=== PATIENT | female | born 1950 | race Caucasian/White ===

== ENCOUNTER 2017-08-12 11:29 | Emergency (ER) | payer MEDICARE, OTHER ==
[2017-08-12 12:04] VITALS: BP 157/75
--- NOTE | 2017-08-12 13:00 | UC ---
Respiratory Complaint HPI - HPI Summary HPI Summary: 66 yo female with cough x 3 days slight fever some myalgias sore throat with cough no cp or sob - History of Current Complaint Chief Complaint: UCRespiratory Stated Complaint: COUGH, FEVER, SORE THROAT Time Seen by Provider: 08/12/17 12:44 Hx Obtained From: Patient Onset/Duration: Gradual Onset, Lasting Days Timing: Constant Severity Initially: Mild Severity Currently: Mild Pain Intensity: 2 Pain Scale Used: 0-10 Numeric Character: Cough: Nonproductive Associated Signs And Symptoms: Positive: Nasal Congestion - Allergies/Home Medications Allergies/Adverse Reactions: Allergies Allergy/AdvReac Type Severity Reaction Status Date / Time No Known Allergies Allergy Verified 08/12/17 12:00 PMH/Surg Hx/FS Hx/Imm Hx Previously Healthy: Yes - Surgical History Surgical History: Yes Surgery Procedure, Year, and Place: IUD REMOVAL - Family History Known Family History: Positive: Hypertension - Social History Alcohol Use: Rare Substance Use Type: None Smoking Status (MU): Never Smoked Tobacco Review of Systems Constitutional: Fever Skin: Negative Eyes: Negative ENT: Negative Respiratory: Cough Cardiovascular: Negative Gastrointestinal: Negative Genitourinary: Negative Motor: Negative Neurovascular: Negative Musculoskeletal: Negative Neurological: Negative Psychological: Negative Is Patient Immunocompromised?: No All Other Systems Reviewed And Are Negative: Yes Physical Exam Triage Information Reviewed: Yes Appearance: Well-Appearing, No Pain Distress, Well-Nourished Vital Signs: Initial Vital Signs Temp 98.2 F 08/12/17 12:02 Pulse 77 08/12/17 12:02 Resp 18 08/12/17 12:02 BP 157/75 08/12/17 12:02 Pulse Ox 97 08/12/17 12:02 Vital Signs Reviewed: Yes Eyes: Positive: Conjunctiva Clear ENT: Positive: Hearing grossly normal, Uvula midline. Negative: Pharyngeal erythema, Nasal congestion, Nasal drainage, Trismus, Muffled voice, Hoarse voice Neck: Positive: Supple, Nontender, No Lymphadenopathy Respiratory: Positive: Lungs clear, Normal breath sounds, No respiratory distress, No accessory muscle use, Rhonchi - cleared post tussively Cardiovascular: Positive: RRR Musculoskeletal: Positive: ROM Intact, No Edema Neurological: Positive: Alert Psychological Exam: Normal Skin Exam: Normal UC Diagnostic Evaluation - Laboratory Pertinent Lab Values Are: WNL Except: - influenza A (+) O2 Sat by Pulse Oximetry: 97 - normal/not hypoxic - Radiology Xray Interpretation: Positive (See Comments) Radiology Interpretation Completed By: Radiologist Respiratory Course/Dx - Differential Dx/Diagnosis Provider Diagnoses: influenza Discharge - Discharge Plan Condition: Stable Disposition: HOME Prescriptions: Oseltamivir CAP* [Tamiflu CAP*] 75 mg PO BID #10 cap Patient Education Materials: Influenza (ED) Referrals: Mariah Hernandez MD [Primary Care Provider] - 3 Days (recheck in 3-4 days if not better) Additional Instructions: rest fluids tylenol mucinex or robitussin
--- NOTE | 2017-08-12 13:16 | RAD ---
INDICATION: Cough. COMPARISON: There are no prior studies available for comparison. TECHNIQUE: Dual-energy PA and lateral views of the chest were obtained. FINDINGS: The heart is within normal limits in size. Mediastinal and hilar contours appear within normal limits. There is a minimal linear density located above the left lung base suggestive of atelectasis. The lungs are otherwise clear. No pleural effusion is seen. IMPRESSION: MINIMAL LEFT BASILAR SUBSEGMENTAL ATELECTASIS. THE LUNGS ARE OTHERWISE CLEAR.
== END 2017-08-12 13:30 | disposition home or self-care (01) ==
LOC: UCEAST 11:29
DX: J11.1 Influenza due to unidentified influenza virus with other respiratory manifestations (principal)
CPT/HCPCS: 71020; 87502; 99212; G0463